=== PATIENT | female | born 1960 | race Caucasian/White ===

== ENCOUNTER 2022-06-03 19:49 | Inpatient (IN) | payer MEDICAID ==
[~2022-06-03] VITALS: Ht 142.2 cm; Wt 52.2 kg
--- NOTE | 2022-06-03 20:15 | NUR ---
BIBHUSBAND FROM HOME WITH CC OF ABDOMINAL PAIN (COLICKY/ GASSY) FOR A MONTH, PAIN MORE INTENSE TODAY, 08/21. PT PLACED COMFORTABLY IN BED, VITALS CHECKED.
--- NOTE | 2022-06-03 20:18 | NUR ---
URINE COLLECTED AND SENT TO LAB
--- NOTE | 2022-06-03 20:40 | NUR ---
BLOOD WORK COLLECTED AND SENT TO LAB
--- NOTE | 2022-06-03 20:42 | NUR ---
MASON/TRISH [phone]
[2022-06-03 21:01] LABS: BASOPHILS % (AUTO) 0.2 % (0.0-2.0); EOSINOPHILS % (AUTO) 0.3 % (0.0-6.0); HEMATOCRIT 38 % (33-45); HEMOGLOBIN 12.6 g/dL (11.5-14.8); LYMPHOCYTES # (AUTO) 1.6 K/uL (0.8-4.8); LYMPHOCYTES % (AUTO) 32.8 % (20.0-44.0); MEAN CORPUSCULAR HGB CONC 34 g/dl (31.0-36.0); MEAN CORPUSCULAR VOLUME 81 fL (82-100); MONOCYTES # (AUTO) 0.5 K/uL (0.1-1.30); NEUTROPHILS # (AUTO) 2.7 K/uL (1.8-8.9); NEUTROPHILS % (AUTO) 56.7 % (43.0-81.0); PLATELET COUNT (AUTO) 206 K/uL (150-450); RED BLOOD CELL COUNT(AUTO) 4.65 MIL/uL (4.0-5.2); WHITE BLOOD COUNT (AUTO) 4.8 K/uL (4.3-11.0)
[2022-06-03 21:08] LABS: CALCIUM, SERUM 9.5 mg/dL (8.5-10.1); CREATININE 0.6 mg/dL (0.6-1.3); POTASSIUM 3.6 mmol/L (3.5-5.1)
--- NOTE | 2022-06-03 21:08 | NUR ---
PT TO CT ACCOMPANIED BY TECH
[2022-06-03 21:11] LABS: BILIRUBIN,URINE NEGATIVE (NEGATIVE); COLOR,URINE YELLOW (YELLOW); LEUKOCYTE ESTERASE ,URINE 1+ (NEGATIVE); NITRITE, URINE NEGATIVE (NEGATIVE); PROTEIN,URINE NEGATIVE (NEGATIVE); UGLUCOSE NEGATIVE (NEGATIVE); UROBILINOGEN,URINE 0.2 EU/dL (0.2)
[2022-06-03 21:13] LABS: ALBUMIN 4.3 g/dL (3.4-5.0); BILIRUBIN,DIRECT 0.2 mg/dL (0.0-0.2); BILIRUBIN,TOTAL 0.9 mg/dL (0.2-1.0); TOTAL PROTEIN, SERUM 7.1 g/dL (6.4-8.2)
--- NOTE | 2022-06-03 21:18 | NUR ---
PT RETURNED FROM CT
[2022-06-03 21:29] LABS: BACTERIA,URINE Few /HPF (None Seen); RBC,URINE 0-2 /HPF (0-2); SQUAMOUS EPITHELIAL CELL,UR Few /HPF (None Seen)
[2022-06-03] MEDS ORDERED: KETOROLAC TROMETHAMINE INJ 30 MG/ML VIAL IV ONE (22:00)
[2022-06-03] MEDS ORDERED: MAG HYDROX/AL HYDROX/SIMETH 30 ML UDC PO ONE (22:00)
[2022-06-03] MEDS ORDERED: ONDANSETRON HCL/PF - ER 4 MG/2 ML VIAL IV ONE (22:00)
[2022-06-03] MEDS ORDERED: FAMOTIDINE/PF INJ 20 MG/2 ML VIAL IV ONE ×2 (22:00→22:06)
[2022-06-03] MEDS ORDERED: LIDOCAINE VISCOUS 2% UD 15 ML UDC MM ONE (22:00)
[2022-06-03] MEDS ORDERED: IV NS 0.9% 1,000 ML BAG IV ONE (22:00)
[2022-06-03] MEDS ORDERED: KETOROLAC TROMETHAMINE 15 MG/ML VIAL ONE (22:05)
[2022-06-03] MEDS ORDERED: LIDOCAINE VISCOUS 2% UD 15 ML UDC ONE (22:06)
[2022-06-03] MEDS ORDERED: MAG HYDROX/AL HYDROX/SIMETH 30 ML UDC ONE (22:06)
[2022-06-03] MEDS ORDERED: ONDANSETRON HCL/PF 4 MG/2 ML VIAL ONE (22:06)
--- NOTE | 2022-06-03 22:09 | NUR ---
Note [email or web address] in EDM - 06/03/22 at 2227 by MALATHI PT WAS NOTED WITH AFIB WITH RATE RANGING FROM 120-140S WITH BP OF 95/69. MD ORDERED TO GIVE MORPHINE 2MG IV PRIOR TO NOTING BP. MD MADE AWARE OF VITALS AND ORDERED TO HOLD MORPHINE AND GIVEN DILTIAZEM 20MG IV.
--- NOTE | 2022-06-03 22:25 | NUR ---
COVID SWAB COLLECTED AND SENT TO LAB
[2022-06-03] MEDS ORDERED: DILTIAZEM HCL 50 MG IV IV ONE (22:30)
--- NOTE | 2022-06-03 22:32 | NUR ---
DILTIAZEM ORDER CANCELLED D/T ORDER PLACED ON WRONG PATIENT.
--- NOTE | 2022-06-04 05:00 | NUR ---
admitting called rn field case manager to follow up regarding transfer to [facility]
--- NOTE | 2022-06-04 06:10 | NUR ---
Rudy Matias Copywriting Intern, called back to inform that bed is still not available at this time. Will call back once room is available for transfer.
--- NOTE | 2022-06-04 08:42 | NUR ---
Ok to admit under TRAFFIC INVESTIGATOR Sky Pires per CM May
--- NOTE | 2022-06-04 08:44 | NUR ---
Admitting aware of auth
--- NOTE | 2022-06-04 08:45 | NUR ---
Dr Cassidy aware of auth
--- NOTE | 2022-06-04 09:01 | NUR ---
[facility] CALLED, WELD FITTER PAGED.
--- NOTE | 2022-06-04 09:03 | NUR ---
CALLED [phone] [facility] TO HAVE PRESCRIPTION CLERK LENSES TELEPHONE DR. HUNG FOR ADMISSION. PRESCRIPTION CLERK LENSES IS DR. GUALLPA.
--- NOTE | 2022-06-04 09:39 | NUR ---
CALLED SURGERY DR. RICHTER [phone] HUNG.
--- NOTE | 2022-06-04 09:42 | NUR ---
GOT BED 323-2 ADMITTING INFORMED.
[2022-06-04 10:01] LABS: BASOPHILS % (AUTO) 0.3 % (0.0-2.0); EOSINOPHILS % (AUTO) 0.4 % (0.0-6.0); HEMATOCRIT 36 % (33-45); HEMOGLOBIN 12.1 g/dL (11.5-14.8); LYMPHOCYTES # (AUTO) 1.6 K/uL (0.8-4.8); LYMPHOCYTES % (AUTO) 31.4 % (20.0-44.0); MEAN CORPUSCULAR HGB CONC 34 g/dl (31.0-36.0); MEAN CORPUSCULAR VOLUME 82 fL (82-100); MONOCYTES # (AUTO) 0.5 K/uL (0.1-1.30); MONOCYTES % (AUTO) 9.1 % (2.0-12.0); NEUTROPHILS % (AUTO) 58.8 % (43.0-81.0); PLATELET COUNT (AUTO) 191 K/uL (150-450); RED BLOOD CELL COUNT(AUTO) 4.41 MIL/uL (4.0-5.2)
[2022-06-04 10:17] LABS: CALCIUM, SERUM 8.9 mg/dL (8.5-10.1); CREATININE 0.6 mg/dL (0.6-1.3); POTASSIUM 3.9 mmol/L (3.5-5.1)
--- NOTE | 2022-06-04 10:26 | NUR ---
report given to ebony rn. awaiting transfer to floor
[2022-06-04] MEDS ORDERED: MORPHINE SULFATE INJ 4 MG/ML DISP.SYRIN IV PRN (10:30)
[2022-06-04] MEDS ORDERED: MORPHINE SULFATE INJ 4 MG/ML DISP.SYRIN ONE (10:30)
--- NOTE | 2022-06-04 11:00 | NUR ---
ADMISSION NOTE Received patient via gurney from ER. Report given by ES Ovalles. Patient is A/O x 3, Estonian speaking. On room air, breathing evenly and unlabored. No SOB or s/s of distress noted. IV access on LAC #18, intact and patent. Patient oriented to room and how to use the call light. All belongings accounted for, belonging sheets signed. Skin assessment done, c/d/i. VS taken as follows: BP 149/84, HR 83, RR 20, Temp 98.3, SPO2 99% on room air. Lungs clear on auscultation. Abdomen is soft with bowel sounds present. Safety precautions in place: bed in low, locked position; siderails up x 2; call light within reach. Will continue to monitor.
[2022-06-04] MEDS ORDERED: LEVO88TA5 PO (11:11)
[2022-06-04] MEDS ORDERED: CALC500T52 PO (11:11)
[2022-06-04] MEDS ORDERED: LISI-768 PO (11:11)
[2022-06-04] MEDS ORDERED: CHOL100043 PO (11:11)
[2022-06-04] MEDS: CEFTRIAXONE 1 G in IV D5W 50 ML IV SCH (11:48)
--- NOTE | 2022-06-04 12:15 | NUR ---
RN NOTE Patient brought down to OR for surgery.
[2022-06-04] MEDS ORDERED: ANESTHESIA TRAY IN PYXIS 1 EA TRAY MC ONE (12:23)
[2022-06-04] MEDS ORDERED: LIDOCAINE 1%-EPI 1:100,000 20 ML VIAL ONE (12:25)
[2022-06-04] MEDS ORDERED: BUPIVACAINE MPF 0.5% W/EPI INJ 30 ML VIAL ONE (12:26)
[2022-06-04] MEDS ORDERED: LIDOCAINE 1% INJ 50 ML MDV IJ ONE (12:26)
[2022-06-04] MEDS ORDERED: MIDAZOLAM HCL 2 MG/2ML VIAL ONE (12:32)
[2022-06-04] MEDS ORDERED: HYDROMORPHONE INJ 2 MG/ML DISP.SYRIN ONE (12:32)
[2022-06-04] MEDS ORDERED: FENTANYL PF 100MCG/2ML AMPUL ONE ×2 (12:32→15:50)
[2022-06-04] MEDS ORDERED: ROCURONIUM BROMIDE 50 MG/5 ML ONE ×2 (12:33)
[2022-06-04] MEDS ORDERED: PHYTONADIONE INJ 10 MG/1 ML AMPUL SQ ONE (13:30)
[2022-06-04] MEDS ORDERED: BACITRACIN ZINC OINT PACKET 1 EA PACKET TP ONE (13:53)
[2022-06-04] MEDS ORDERED: BACITRACIN ZINC OINT (15 GM) 15 GM TUBE TP ONE (13:55)
--- NOTE | 2022-06-04 16:30 | NUR ---
RN NOTE Patient brought back to room 323-2. Remains stable with VS as follows: BP 119/70, HR 68, RR 14, Temp 97.2, SPO2 97% on room air. Surgical incision is c/d/i. Ziegler catheter in place draining to a yellow colored urine. To keep patient NPO until tomorrow AM, ice chips okay. Will continue to monitor.
[2022-06-04 16:39] VITALS: BP 113/60
[2022-06-04] MEDS: IV LR 1000 ML 1,000 ML IV PRN (16:40)
--- NOTE | 2022-06-04 16:45 | NUR ---
RN NOTE Patient remains stable with VS as follows: BP 110/61, HR 65, RR 16, Temp 97.8, SPO2 95% on room air. Surgical incision remains c/d/i. Will continue to monitor.
[2022-06-04] MEDS ORDERED: ACETAMINOPHEN 325 MG TABLET PO PRN (17:00)
[2022-06-04] MEDS: LISINOPRIL (5MG) 5 MG TABLET PO SCH ×2 (17:00→18:24)
[2022-06-04] MEDS: CELECOXIB 100 MG CAPSULE PO SCH ×2 (17:00→18:24)
[2022-06-04] MEDS: GABAPENTIN 300 MG CAPSULE PO SCH ×2 (17:00→18:24)
--- NOTE | 2022-06-04 17:00 | NUR ---
RN NOTE Patient remains stable with VS as follows: BP 112/61, HR 62, RR 17, Temp 97.4, SPO2 95% on room air. Surgical incision remains c/d/i. Will continue to monitor.
--- NOTE | 2022-06-04 17:15 | NUR ---
RN NOTE Patient remains stable with VS as follows: BP 114/65, HR 63, RR 15, Temp 97.6, SPO2 95% on room air. Surgical incision remains c/d/i. Will continue to monitor.
--- NOTE | 2022-06-04 17:30 | NUR ---
RN NOTE Patient remains stable with VS as follows: BP 113/60, HR 69, RR 16, Temp 97.5, SPO2 94% on room air. Surgical incision remains c/d/i. Will continue to monitor.
--- NOTE | 2022-06-04 18:58 | NUR ---
MS RN CLOSING NOTE Patient in bed, resting. A/Ox 4, able to make needs known. Stable on room air, breathing evenly and unlabored. No SOB or s/s of distress noted. IV access on LAC #18 SL and Right hand #18 infusing LR at 125 ml/hr. Ziegler catheter in place draining to a yellow colored urine. Due meds given. All needs attended to. Patient kept NPO tonight, ice chips okay. Safety precautions in place: bed in low, locked position; siderails up x 2; call light within reach. Will endorse to line service supervisor nurse for KENNEDY.
--- NOTE | 2022-06-04 19:29 | NUR ---
MS RN OPENING NOTES RECEIVED PATIENT AWAKE I BED. PATIENT IS A/O TIMES 4. BROTHER AT BED SIDE. NO PAIN NOTED. NO SOB NOTED. NO DISTRESS NOTED. ABLE TO MAKE NEEDS KNOWN. S/P OF THE EXPLOR LAP WITH BOWL RESECTION WITH DR RICHTER. DRESSING INTACT AND PATENT. NO BLEEDING NOTED. IV ACCESS ON THE LAC # 18 AND RIGHT HAND # 18 INTACT AND RUNNING LR AT 125 ML/HR. DARBY CATHETER INTACT AND FOR NOW IS EMPTY SINCE PER PREVIOUS SHIFT NURSE IT WAS DRAINED AT OR . ALL NEEDS ATTENDED. ALL SAFETY MEASURES IN PLACE. BED LOCKED IN THE LOWEST POSITION. CALL LIGHT AND TABLE IN EASY REACH. SIDE RAILS UP TIMES 2. BED ALARM ON. WILL CONTINUE TO MONITOR CLOSELY,
[2022-06-04] MEDS: HYDROMORPHONE 1 MG/1 ML DISP.SYRIN IV PRN (20:13)
--- NOTE | 2022-06-04 20:15 | NUR ---
RN NOTES PATIENT COMPLAINS OF 8/10 ABDOMINAL PAIN. PRN DILAUDID GIVEN ORDERED FOR PAIN AT 2015. WILL ASSESS PAIN IN 30 MIN.
[2022-06-04 21:16] VITALS: BP 112/68
[2022-06-05] MEDS: GABAPENTIN 300 MG CAPSULE PO SCH ×3 (00:52→17:28)
[2022-06-05] MEDS: IV LR 1000 ML 1,000 ML IV PRN ×2 (01:38→12:17)
[2022-06-05] MEDS: CELECOXIB 100 MG CAPSULE PO SCH ×2 (05:19→17:28)
[2022-06-05 06:21] LABS: BASOPHILS % (AUTO) 0.1 % (0.0-2.0); HEMATOCRIT 34 % (33-45); HEMOGLOBIN 11.3 g/dL (11.5-14.8); LYMPHOCYTES # (AUTO) 1.4 K/uL (0.8-4.8); LYMPHOCYTES % (AUTO) 8.9 % (20.0-44.0); MEAN CORPUSCULAR HGB CONC 33 g/dl (31.0-36.0); MEAN CORPUSCULAR VOLUME 81 fL (82-100); MONOCYTES % (AUTO) 6.5 % (2.0-12.0); NEUTROPHILS # (AUTO) 12.9 K/uL (1.8-8.9); NEUTROPHILS % (AUTO) 84.5 % (43.0-81.0); PLATELET COUNT (AUTO) 229 K/uL (150-450); RED BLOOD CELL COUNT(AUTO) 4.21 MIL/uL (4.0-5.2); WHITE BLOOD COUNT (AUTO) 15.3 K/uL (4.3-11.0)
--- NOTE | 2022-06-05 06:43 | NUR ---
MS RN CLOSING NOTES PATIENT RESTING IN BED. PATIENT IS A/O TIMES 4. NO PAIN NOTED. NO SOB NOTED. NO DISTRESS NOTED. ABLE TO MAKE NEEDS KNOWN. S/P OF THE EXPLOR LAP WITH BOWL RESECTION WITH DR RICHTER. DRESSING INTACT AND PATENT. NO BLEEDING NOTED. IV ACCESS ON THE LAC # 18 AND RIGHT HAND # 18 INTACT AND RUNNING LR AT 125 ML/HR. DARBY CATHETER INTACT AND DRAINING YELLOW COLOR URINE. DR RICHTER CALLED AROUND 1999 AND ASKED TO HELP THE PATIENT TO STAND UP TO SEE IF THE PATIENT FEELS PRESSURE ON THE RECTUM TO HAVE BOWEL MOVEMENT. THE PATIENT DID NOT HAVE ANY BOWEL MOVEMENTS AND DID NOT FEEL PRESSURE . SHE WAS RELEASING SOME GASES. CALLED BACK TO DR RICHTER AND REPORTED THE RESULT. ALL DUE MEDS GIVEN ORDERED.ALL NEEDS ATTENDED. ALL SAFETY MEASURES IN PLACE. BED LOCKED IN THE LOWEST POSITION. CALL LIGHT AND TABLE IN EASY REACH. SIDE RAILS UP TIMES 2. BED ALARM ON. WILL ENDORSE FOR KENNEDY.
[2022-06-05 07:00] VITALS: BP 139/70
[2022-06-05 07:07] LABS: CALCIUM, SERUM 8.7 mg/dL (8.5-10.1); CREATININE 0.7 mg/dL (0.6-1.3); MAGNESIUM 1.6 mg/dL (1.8-2.4); PHOSPHORUS 3.9 mg/dL (2.5-4.9)
--- NOTE | 2022-06-05 07:30 | NUR ---
OPENING NOTE PATIENT RECEIVED A/O x4, ON RA MAURITANIAN SPEAKING. NO S/S OF DISTRESS OR SOB.CLEAR LUNG SOUNDS. SKIN WARM TO TOUCH, NO EDEMA PRESENT. CAPILLARY REFILL <3. PAIN LEVEL 3. ABDOMEN DRESSING INTACT AND DRY WITH HYPOACTIVE BOWEL SOUNDS. IV ACCESS R HAND G#20 INTACT AND PATENT. CONTINENT: BRP/ BSC. FALL PRECAUTION AND SAFETY PRECAUTION IN PLACED: BED LOCK AND IN LOWEST POSITION,SRx2,BED SIDE TABLE WITHIN REACH, CALL LIGHT WITHIN REACH
[2022-06-05] MEDS: Magnesium 1GM/D5W 100ML PREMIX 100 ML IV SCH ×4 (09:00→20:43)
[2022-06-05] MEDS: LEVOTHYROXINE SODIUM 88 MCG TABLET PO SCH (09:48)
[2022-06-05] MEDS: CALCIUM CARBONATE (1250) 500 MG TABLET PO SCH (09:48)
[2022-06-05] MEDS: CHOLECALCIFEROL 1,000 UNIT TABLET (VIT D3) PO SCH (09:48)
[2022-06-05] MEDS: LISINOPRIL (5MG) 5 MG TABLET PO SCH ×2 (09:49→17:28)
[2022-06-05] MEDS: CEFTRIAXONE 1 G in IV D5W 50 ML IV SCH (12:16)
[2022-06-05] MEDS: HYDROMORPHONE 1 MG/1 ML DISP.SYRIN IV PRN (12:17)
[2022-06-05 16:23] VITALS: BP 122/70
--- NOTE | 2022-06-05 19:40 | NUR ---
CLOSING NOTE PATIENT IN BED RESTING. A/O x4, ON RA ANGOLAN SPEAKING. NO S/S OF DISTRESS OR SOB.PAIN LEVEL 2. ABDOMEN DRESSING INTACT AND DRY WITH HYPOACTIVE BOWEL SOUNDS.MEDICATION WAS GIVEN ORDERED. IV ACCESS R HAND G#20 INTACT AND PATENT. CONTINENT: BRP. FALL PRECAUTION AND SAFETY PRECAUTION MAINTAINED: BED LOCK AND IN LOWEST POSITION,SRx2,BED SIDE TABLE WITHIN REACH, CALL LIGHT WITHIN REACH
[2022-06-05 20:00] VITALS: BP 112/63
--- NOTE | 2022-06-05 20:08 | NUR ---
MS RN OPENING NOTES RECEIVED PATIENT AWAKE IN BED. PATIENT IS A/O TIMES 4. AT BED SIDE.NO PAIN NOTED. NO SOB NOTED. NO DISTRESS NOTED. ABLE TO MAKE NEEDS KNOWN. S/P OF THE EXPLOR LAP WITH BOWL RESECTION WITH DR RICHTER. DRESSING INTACT AND PATENT. NO BLEEDING NOTED. IV ACCESS ON THE LAC # 18 AND RIGHT HAND # 18 INTACT AND RUNNING LR AT 55 ML/HR. DARBY CATHETER INTACT AND DRAINING YELLOW COLOR URINE. ALL NEEDS ATTENDED. ALL SAFETY MEASURES IN PLACE. BED LOCKED IN THE LOWEST POSITION. CALL LIGHT AND TABLE IN EASY REACH. SIDE RAILS UP TIMES 2. BED ALARM ON. WILL CONTINUE TO MONITOR CLOSELY,
[2022-06-06] MEDS: GABAPENTIN 300 MG CAPSULE PO SCH ×3 (01:16→17:49)
[2022-06-06] MEDS: CELECOXIB 100 MG CAPSULE PO SCH ×2 (04:11→17:48)
[2022-06-06] MEDS: HYDROMORPHONE 1 MG/1 ML DISP.SYRIN IV PRN ×2 (04:27→21:29)
--- NOTE | 2022-06-06 05:30 | NUR ---
RN NOTES PATIENT COMPLAIN OF 8/10 ABDOMEN PAIN. PRN HYDROMORPHONE GIVEN FOR PAIN AT 0427. WILL ASSESS IN 30 MIN.
[2022-06-06 06:16] LABS: CALCIUM, SERUM 8.3 mg/dL (8.5-10.1); CREATININE 0.5 mg/dL (0.6-1.3); MAGNESIUM 2.3 mg/dL (1.8-2.4); POTASSIUM 3.5 mmol/L (3.5-5.1)
--- NOTE | 2022-06-06 06:35 | NUR ---
MS RN CLOSING NOTES PATIENT AWAKE IN BED. PATIENT IS A/O TIMES 4. NO PAIN NOTED. NO SOB NOTED. NO DISTRESS NOTED. ABLE TO MAKE NEEDS KNOWN. S/P OF THE EXPLOR LAP WITH BOWL RESECTION WITH DR RICHTER. DRESSING INTACT AND PATENT. NO BLEEDING NOTED. IV ACCESS ON THE LAC # 18 AND RIGHT HAND # 18 INTACT AND RUNNING LR AT 55 ML/HR. DARBY CATHETER INTACT AND DRAINING YELLOW COLOR URINE. URINE OUTPUT WAS 1300 ML.ALL NEEDS ATTENDED. ALL DUE MEDS GIVEN. ALL SAFETY MEASURES IN PLACE. BED LOCKED IN THE LOWEST POSITION. CALL LIGHT AND TABLE IN EASY REACH. SIDE RAILS UP TIMES 2. BED ALARM ON. WILL ENDORSE FOR KENNEDY.
[2022-06-06 07:14] LABS: BASOPHILS % (AUTO) 0.1 % (0.0-2.0); EOSINOPHILS % (AUTO) 0.3 % (0.0-6.0); HEMATOCRIT 30 % (33-45); HEMOGLOBIN 10.1 g/dL (11.5-14.8); LYMPHOCYTES # (AUTO) 0.9 K/uL (0.8-4.8); MEAN CORPUSCULAR HGB CONC 34 g/dl (31.0-36.0); MEAN CORPUSCULAR VOLUME 80 fL (82-100); MONOCYTES # (AUTO) 0.5 K/uL (0.1-1.30); MONOCYTES % (AUTO) 6.3 % (2.0-12.0); NEUTROPHILS # (AUTO) 6.5 K/uL (1.8-8.9); NEUTROPHILS % (AUTO) 82.3 % (43.0-81.0); PLATELET COUNT (AUTO) 167 K/uL (150-450); RED BLOOD CELL COUNT(AUTO) 3.68 MIL/uL (4.0-5.2); WHITE BLOOD COUNT (AUTO) 7.9 K/uL (4.3-11.0)
--- NOTE | 2022-06-06 07:28 | NUR ---
MS RN OPENING NOTES RECEIVED PATIENT AWAKE IN BED. FAROESE SPEAKING, REQUIRES PROFILE MILL OPERATOR TAPE CONTROL - CALLS OR DAUGHTER. AOX4, ON ROOM AIR BREATHING WITHOUT ANY DIFFICULTY. NO SIGNS OF ANY ACUTE DISTRESS, DENIES PAIN NOR DISCOMFORT AT THE MOMENT. PATIENT HAS POST OP DRESSING (EXPLORE LAP/BOWEL RESECTION) C/D/I NO SIGNS OF BLEEDING. IV ACCESSES ON THE LEFT AC G#18 INTACT AND FLUSHING WELL WITH LR @55 ML/HR AND RIGHT HAND G#18 SALINE LOCKED. WITH DARBY CATHETER INTACT DRAINING PALE YELLOW URINE. ALL SAFETY MEASURES IN PLACE: BED LOCKED AND AT LOWEST POSITION. CALL LIGHT AND TABLE WITHIN EASY REACH . SIDE RAILS UP TIMES 2. WILL CONTINUE TO MONITOR CLOSELY.
[2022-06-06 07:30] VITALS: BP 133/78
[2022-06-06] MEDS: LEVOTHYROXINE SODIUM 88 MCG TABLET PO SCH (08:00)
[2022-06-06] MEDS: LISINOPRIL (5MG) 5 MG TABLET PO SCH ×2 (08:59→17:49)
[2022-06-06] MEDS: CHOLECALCIFEROL 1,000 UNIT TABLET (VIT D3) PO SCH (08:59)
[2022-06-06] MEDS: CALCIUM CARBONATE (1250) 500 MG TABLET PO SCH (09:00)
[2022-06-06] MEDS: IV LR 1000 ML 1,000 ML IV PRN (10:08)
[2022-06-06] MEDS: ENOXAPARIN SODIUM 40 MG/0.4 ML DISP.SYRIN SQ SCH (10:10)
[2022-06-06] MEDS: CEFTRIAXONE 1 G in IV D5W 50 ML IV SCH (12:03)
--- NOTE | 2022-06-06 14:45 | NUR ---
RN NOTES - PATIENT WAS ABLE TO PASS GAS, ASSISTED PT TO THE BATHROOM.
[2022-06-06 16:00] VITALS: BP 112/69
--- NOTE | 2022-06-06 18:00 | NUR ---
RN NOTES - PATIENT WAS ABLE TO PASS SOFT FORMED STOOL, DR MUSTAFA WAS CALLED BY THE .
--- NOTE | 2022-06-06 19:00 | NUR ---
RN OPENING NOTE RECEIVED PT AWAKE IN BED. A/O X 4, SAMI AND RWANDAN SPEAKING. PT IS IN RA TOLERATING WELL, BREATHING EVEN AND UNLABORED @ THIS TIME. PT IV PRESENT ON LEFT HAND #20 RUNNING LACTATED RINGER @ 55 ML/HR, PATENT, INTACT & FLUSHES WELL W/ NO INFILTRATION @ SITE NOTED. PT DARBY CATHETER IS IN PLACE DRAINING CLEAR COLORED URINE. PT ABDOMINAL DRESSING IS INTACT AND CLEAN. SAFETY MEASURES IS IN PLACE. BED IN LOWEST AND LOCKED POSITION, SIDE RAILS UP X 2. BEDSIDE TABLE AND CALL LIGHT IS WITHIN REACH. BED ALARM IS ON. WILL CONTINUE TO MONITOR PT ACCORDINGLY.
--- NOTE | 2022-06-06 19:23 | NUR ---
MS RN CLOSING NOTES PATIENT AWAKE IN BED, FRISIAN SPEAKING, AOX4, STILL ON ROOM AIR BREATHING WITHOUT ANY DIFFICULTY. NO SIGNS OF ANY ACUTE DISTRESS, NO PAIN NOR DISCOMFORT AT THE MOMENT. ABDOMINAL DRESSING STILL C/D.I. IV ACCESS ON LEFT HAND G#20, PATENT AND FLUSHING WELL WITH LR RUNNING 55 ML/HR. DARBY CATHETER STILL INTACT DRAINING CLEAR YELLOW URINE. ALL DUE MEDS GIVEN, ALL NEEDS MET. ALL SAFETY MEASURES MAINTAINED: BED LOCKED AND AT LOWEST POSITION. CALL LIGHT AND TABLE WITHIN EASY REACH . SIDE RAILS UP TIMES 2. ENDORSED TO TRAVEL REGISTERED NURSE ONCOLOGY NURSE.
[2022-06-06 20:00] VITALS: BP 127/76
--- NOTE | 2022-06-06 20:10 | NUR ---
PT BP 86/40. 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 RE-POSITON PT TO [place], REMOVED PT SOCKS. WILL CONTINUE TO MONITOR.
[2022-06-07] MEDS: GABAPENTIN 300 MG CAPSULE PO SCH ×3 (00:33→17:27)
[2022-06-07] MEDS: CELECOXIB 100 MG CAPSULE PO SCH ×2 (04:14→17:27)
[2022-06-07 06:32] LABS: BASOPHILS % (AUTO) 0.3 % (0.0-2.0); EOSINOPHILS % (AUTO) 3.3 % (0.0-6.0); HEMATOCRIT 30 % (33-45); LYMPHOCYTES # (AUTO) 1.1 K/uL (0.8-4.8); MEAN CORPUSCULAR HGB CONC 33 g/dl (31.0-36.0); MEAN CORPUSCULAR VOLUME 82 fL (82-100); MONOCYTES # (AUTO) 0.3 K/uL (0.1-1.30); MONOCYTES % (AUTO) 5.5 % (2.0-12.0); NEUTROPHILS # (AUTO) 4.1 K/uL (1.8-8.9); NEUTROPHILS % (AUTO) 71.9 % (43.0-81.0); PLATELET COUNT (AUTO) 160 K/uL (150-450); RED BLOOD CELL COUNT(AUTO) 3.71 MIL/uL (4.0-5.2); WHITE BLOOD COUNT (AUTO) 5.7 K/uL (4.3-11.0)
--- NOTE | 2022-06-07 06:41 | NUR ---
RN CLOSING NOTE PT IS AWAKE AND RESTING COMFORTABLY IN BED. PT IS A/O X 4, RESPONSIVE AND FOLLOWS VERBAL COMMAND. PT IS IN RA W/ NO S & SX OF RESPIRATORY DISTRESS @ THIS TIME. PT IV PRESENT ON LEFT HAND #20G RUNNING LR @55 MLS/HR, PATENT, INTACT AND FLUSHES WELL W/ NO S &S X OF INFILTRATION. PT DARBY CATHETER IN PLACE DRAINING CLEAR COLORED URINE WITH OUTPUT OF 700CC. PT IS KEPT CLEAN AND DRY. ADMINISTERED MEDICATION PER MD'S ORDER. SAFETY MEASURES IN PLACE. BED IN LOWEST AND LOCKED POSITION. SIDE RAILS UP X 2. BEDSIDE TABLE AND CALL LIGHT IS EASY REACH.BED ALARM IS ON. WILL ENDORSE TO THE NEXT SHIFT FOR CONTINUITY OF CARE.
[2022-06-07 06:49] LABS: CALCIUM, SERUM 8.4 mg/dL (8.5-10.1); CREATININE 0.5 mg/dL (0.6-1.3); POTASSIUM 3.6 mmol/L (3.5-5.1)
--- NOTE | 2022-06-07 07:16 | NUR ---
MS RN OPENING NOTES RECEIVED PATIENT SLEEPING IN BED, A/Ox4 HUNGARIAN SPEAKING. ON ROOM AIR NO S/S OF RESPIRATORY DISTRESS. IV ACCESS L HAND #20G RUNNING LR @55 ML/HR. INTACT AND PATENT. PATIENT HAS FC DRAINING YELLOW URINE. SKIN ISSUES: ABDOMEN SX SITE, DRESSING IN PLACE. SAFETY MEASURES IN PLACE: BED LOCKED AND IN LOWEST POSITION, HOB ELEVATED, CALL LIGHT WITHIN REACH, SIDE RAILS UPx2. WILL CONTINUE TO MONITOR.
[2022-06-07 08:00] VITALS: BP 127/73
[2022-06-07] MEDS: CALCIUM CARBONATE (1250) 500 MG TABLET PO SCH (08:21)
[2022-06-07] MEDS: LEVOTHYROXINE SODIUM 88 MCG TABLET PO SCH (08:21)
[2022-06-07] MEDS: LISINOPRIL (5MG) 5 MG TABLET PO SCH ×2 (08:22→17:28)
[2022-06-07] MEDS: CHOLECALCIFEROL 1,000 UNIT TABLET (VIT D3) PO SCH (08:22)
[2022-06-07] MEDS: CEFTRIAXONE 1 G in IV D5W 50 ML IV SCH (10:35)
[2022-06-07] MEDS: ENOXAPARIN SODIUM 40 MG/0.4 ML DISP.SYRIN SQ SCH (10:35)
[2022-06-07 16:00] VITALS: BP 121/68
--- NOTE | 2022-06-07 18:43 | NUR ---
MS RN CLOSING NOTES PATIENT RESTING IN BED, A/Ox4 BELARUSIAN SPEAKING. STABLE ON ROOM AIR NO S/S OF RESPIRATORY DISTRESS. IV ACCESS L HAND #20G RUNNING LR @55 ML/HR. INTACT AND PATENT. PATIENT AMBULATORY WITH WALKER, HAS BRP. SKIN ISSUES: ABDOMEN SX SITE, DRESSING IN PLACE. SAFETY MEASURES MAINTAINED: BED LOCKED AND IN LOWEST POSITION, HOB ELEVATED, CALL LIGHT WITHIN REACH, SIDE RAILS UPx2. ENDORSE TO NEXT SHIFT ANY KENNEDY.
--- NOTE | 2022-06-07 19:30 | NUR ---
MS RN OPENING NOTES - RECEIVED PATIENT WHILE USING THE BATHROOM. A/O X4, LAO SPEAKING. BREATHING EVEN AND NON-LABORED ON ROOM AIR. NOT IN APPARENT DISTRESS. ARRIVED AND VERBALIZED THAT PATIENT HAS ACHING ABDOMINAL PAIN 5-6/10. HAS LEFT HAND IV ACCESS #20G AND SALINE LOCKED. NO S/S OF INFILTRATION NOTED. LR BAG IS EMPTY AND NO SUPPLY AVAILABLE PER ES ARANGO. MINIMAL BLOOD NOTED IN THE ABDOMINAL SURGICAL DRESSING. WILL BE CHANGED BY RN PRIOR TO D/C PER MD ORDER. SAFETY PRECAUTIONS IN PLACE: BED LOCKED AND IN LOW POSITION, SIDE RAILS UP X2, CALL LIGHT WITHIN REACH. WILL CONTINUE PLAN OF CARE.
[2022-06-07 20:00] VITALS: BP 128/80
[2022-06-07] MEDS: HYDROMORPHONE 1 MG/1 ML DISP.SYRIN IV PRN (21:23)
--- NOTE | 2022-06-07 21:30 | NUR ---
C/O ACHING ABDOMINAL SURGICAL INCISION PAIN 09/21. INSTRUCTED PATIENT TO CALL FOR ASSISTANCE WHEN GOING TO THE BATHROOM. DTR TRISH TRANSLATING BY PHONE CALL. ADMINISTERED PRN DILAUDID 1MG, WILL CONTINUE TO MONITOR.
[2022-06-07] MEDS: IV LR 1000 ML 1,000 ML IV PRN (23:39)
[2022-06-08] MEDS: GABAPENTIN 300 MG CAPSULE PO SCH ×2 (00:13→08:22)
[2022-06-08] MEDS: CELECOXIB 100 MG CAPSULE PO SCH (04:30)
--- NOTE | 2022-06-08 07:25 | NUR ---
MS RN CLOSING NOTES - PATIENT SLEEPING, EASY TO AROUSE. ABLE TO RELAY NEEDS. NO CARDIAC OR RESPIRATORY DISTRESS THROUGHOUT THE NIGHT. AFEBRILE. PAIN MANAGEMENT ORDERED. LEFT HAND IV ACCESS #20G INTACT, PATENT AND FLUSHING. AMBULATORY WITH FWW, STEADY GAIT NOTED. INDEPENDENT WITH ADLS. ALL DUE MEDS GIVEN AND NEEDS ATTENDED. SAFETY PRECAUTIONS MAINTAINED. WILL ENDORSE TO NEXT SHIFT FOR KENNEDY.
--- NOTE | 2022-06-08 08:07 | NUR ---
MS RN OPENING NOTES - PATIENT SLEEPING, EASY TO AROUSE. ABLE TO RELAY NEEDS. NO CARDIAC OR RESPIRATORY DISTRESS NOTED. LEFT HAND IV ACCESS #20G INTACT, PATENT AND FLUSHING. AMBULATORY WITH FWW, STEADY GAIT ENDORSED.SAFETY PRECAUTIONS MAINTAINED. WILL CONTINUE TO MONITOR.
[2022-06-08] MEDS: CHOLECALCIFEROL 1,000 UNIT TABLET (VIT D3) PO SCH (08:22)
[2022-06-08] MEDS: LEVOTHYROXINE SODIUM 88 MCG TABLET PO SCH (08:22)
[2022-06-08] MEDS: CALCIUM CARBONATE (1250) 500 MG TABLET PO SCH (08:22)
[2022-06-08] MEDS: LISINOPRIL (5MG) 5 MG TABLET PO SCH (08:23)
[2022-06-08 08:43] VITALS: BP 140/73
[2022-06-08] MEDS ORDERED: CEPH500C2 PO (09:26)
[2022-06-08] MEDS: ENOXAPARIN SODIUM 40 MG/0.4 ML DISP.SYRIN SQ SCH (09:48)
[2022-06-08] MEDS: CEFTRIAXONE 1 G in IV D5W 50 ML IV SCH (12:01)
--- NOTE | 2022-06-08 13:30 | NUR ---
DISCHARGED NOTE DISCHARGED PATIENT TO HOME IN STABLE CONDITION. A/OX4. ON RA, TOLERATING WELL. VITAL SIGNS TAKEN, STABLE AND RECORDED. WOUND CARE RENDERED TO SURGICAL SITE, NO BLEEDING OR SWELLING NOTED. PICTURES TAKEN, PLACED AT CHART. DENIES PAIN OR DISCOMFORT AT THIS TIME. ALL BELONGINGS ACCOUNTED TO PATIENT .DISCHARGED INSTRUCTION RELAYED TO PATIENT'S DAUGHTER. IV ACCESS REMOVED WITH NO ACTIVE BLEEDING NOTED. PATIENT LEFT THE UNIT VIA WHEELCHAIR ACCOMPANIED BY AND REYES CRAWLEY.
== END 2022-06-08 13:30 | disposition home or self-care (01) | DRG 231 ==
LOC: ER 19:57 → MED 06-04 09:51
PROVIDERS: ADMIT Internal Medicine; ATTEND Internal Medicine
PROC: 0DBN0ZZ Excision of Sigmoid Colon, Open Approach (ICD-10-PCS; principal; 2022-06-04)
PROC: 0DNU0ZZ Release Omentum, Open Approach (ICD-10-PCS; 2022-06-04)
DX: C18.7 Malignant neoplasm of sigmoid colon (principal); E83.42 Hypomagnesemia; E89.0 Postprocedural hypothyroidism; K59.00 Constipation, unspecified; K66.0 Peritoneal adhesions (postprocedural) (postinfection); N39.0 Urinary tract infection, site not specified; Z20.822 Contact with and (suspected) exposure to COVID-19; Z86.011 Personal history of benign neoplasm of the brain; I10 Essential (primary) hypertension; Z79.899 Other long term (current) drug therapy; Z79.890 Hormone replacement therapy
CPT/HCPCS: 36415; 80048-TC; 80076-TC; 81001; 82378; 82962-TC; 83690-TC; 83735-TC; 84100-TC; 85025-TC; 85730-TC; 87081-TC; 87086-TC; 88307-TC; 88341; 88342; 97110-TC; 97116-TC; 97530-TC; A4223; C9803; G0378; J0690; J0696; J1100; J1170; J1650; J1885; J2250; J2270; J2405; J2704; J2765; J3010; J3430; J3475; J3490; J7030; J7040; J7060; J7120

== ENCOUNTER 2024-05-06 18:06 | Emergency (ER) | payer MEDICAID ==
[~2024-05-06] VITALS: Ht 144.8 cm; Wt 54.0 kg
[~2024-05-06 18:06] MED LIST: CALC500T52 PO; CEPH500C2 PO; CHOL100043 PO; LEVO88TA5 PO; LISI-768 PO
[2024-05-06] MEDS ORDERED: ACETAMINOPHEN ES 500 MG TABLET ONE (18:55)
[2024-05-06] MEDS ORDERED: IBUPROFEN 600 MG TABLET ONE (18:55)
[2024-05-06] MEDS: ACETAMINOPHEN ES 500 MG TABLET PO ONE (18:58)
[2024-05-06] MEDS: IBUPROFEN 600 MG TABLET PO ONE (18:58)
[2024-05-06] MEDS ORDERED: IBUP-1957 PO (20:05)
[2024-05-06] MEDS ORDERED: TRAM50TA2 PO (20:05)
[2024-05-06 20:40] VITALS: BP 143/90; TEMP 98.5; O2SAT 98
== END 2024-05-06 20:50 | disposition home or self-care (01) ==
LOC: ER 18:19
DX: G56.00 Carpal tunnel syndrome, unspecified upper limb (principal); M25.532 Pain in left wrist; I10 Essential (primary) hypertension; Z79.1 Long term (current) use of non-steroidal anti-inflammatories (NSAID); Z91.048 Other nonmedicinal substance allergy status; Z90.89 Acquired absence of other organs; Z79.899 Other long term (current) drug therapy
CPT/HCPCS: 73110